=== PATIENT | female | born 1945 | race Caucasian/White ===

== ENCOUNTER → 2020-09-02 | Outpatient (CLI) | payer MEDICARE ==
[~2020-09-02] MED LIST: CLEOCIN HCL300 MG PO; LEVAQUIN 750MG750 M1 PO; LORTAB 5/500 501 TAB PO; MUCINEX 60600 MG/TA1 PO; PREDNISONE20 MG PO; SYNTHROID0.05 MG/TA PO; THEOPHYLLINE; TIROSINT50 MC1 PO; UNIPHYL 400MG400 MG PO; ZOLOFT 50MG50 MG PO
== END ==
LOC: COL.PUL 08-22 11:00
DX: R06.02 Shortness of breath (principal)

== ENCOUNTER → 2020-09-17 | Outpatient (CLI) | payer MEDICARE | LOC: COL.VAS 12:51 | DX: I07.1 Rheumatic tricuspid insufficiency (principal); R06.02 Shortness of breath ==